=== PATIENT | male | born 1970 | race Caucasian/White ===

== ENCOUNTER 2019-06-20 09:19 | Outpatient (CLI) | payer OTHER, SELFPAY ==
--- NOTE | 2019-06-20 10:15 | NEURO_ITS ---
Patient Number: [id number] Impression: # Complains of pain and numbness of hands. # Bilateral Carpal Tunnel Syndrome, right more than left. # No ulnar neuropathy. # Normal needle/EMG exam. Nerve Conduction Studies Anti Sensory Summary Table Stim Site NR Peak (ms) P-T Amp (?V) Site1 Site2 Delta-P (ms) Dist (cm) Yazan (m/s) Left Median Anti Sensory (2-3nd Digit) Wrist 4.3 33.1 Wrist 2-3nd Digit 4.3 14.0 33 Wrist 4.8 13.6 Wrist 2-3nd Digit 4.3 14.0 33 Right Median Anti Sensory (2-3nd Digit) Wrist 5.9 29.9 Wrist 2-3nd Digit 5.9 14.0 24 Wrist 6.3 7.8 Wrist 2-3nd Digit 5.9 14.0 24 Left Radial Anti Sensory (Base 1st Digit) Wrist 2.0 21.1 Wrist Base 1st Digit 2.0 0.0 Right Radial Anti Sensory (Base 1st Digit) Wrist 2.0 16.0 Wrist Base 1st Digit 2.0 0.0 Left Ulnar Anti Sensory (5th Digit) Wrist 2.5 59.6 Wrist 5th Digit 2.5 14.0 56 Right Ulnar Anti Sensory (5th Digit) Wrist 2.5 49.7 Wrist 5th Digit 2.5 14.0 56 Motor Summary Table Stim Site NR Onset (ms) O-P Amp (mV) Site1 Site2 Delta-0 (ms) Dist (cm) Yazan (m/s) Left Median Motor (Abd Poll Brev) Wrist 4.1 1.2 Elbow Wrist 5.4 30.0 56 Elbow 9.5 0.9 Right Median Motor (Abd Poll Brev) Wrist 5.8 1.4 Elbow Wrist 4.7 28.0 60 Elbow 10.5 1.4 Left Ulnar Motor (Abd Dig Minimi) Wrist 2.5 4.1 A Elbow Wrist 5.2 31.0 60 A Elbow 7.7 3.2 Right Ulnar Motor (Abd Dig Minimi) Wrist 2.3 3.2 A Elbow Wrist 5.2 30.0 58 A Elbow 7.5 2.3 F Wave Studies NR F-Lat (ms) L-R F-Lat (ms) Left Median (Mrkrs) (Abd Poll Brev) 31.28 0.01 Right Median (Mrkrs) (Abd Poll Brev) 31.29 0.01 Left Ulnar (Mrkrs) (Abd Dig Min) 29.53 0.04 Right Ulnar (Mrkrs) (Abd Dig Min) 29.57 0.04 EMG Side Muscle Nerve Root Ins Act Fibs Amp Dur Recrt Comment Right 1stDorInt Ulnar C8-T1 Nml Nml Nml Nml Nml Right Ext Indicis Radial (Post Int) C7-8 Nml Nml Nml Nml Nml Right Ext Digitorum Radial (Post Int) C7-8 Nml Nml Nml Nml Nml Right BrachioRad Radial C5-6 Nml Nml Nml Nml Nml Right PronatorTeres Median C6-7 Nml Nml Nml Nml Nml Right Abd Poll Brev Median C8-T1 Nml Nml Nml Nml Nml Left 1stDorInt Ulnar C8-T1 Nml Nml Nml Nml Nml Left Ext Indicis Radial (Post Int) C7-8 Nml Nml Nml Nml Nml Left Ext Digitorum Radial (Post Int) C7-8 Nml Nml Nml Nml Nml Left BrachioRad Radial C5-6 Nml Nml Nml Nml Nml Left PronatorTeres Median C6-7 Nml Nml Nml Nml Nml Left Abd Poll Brev Median C8-T1 Nml Nml Nml Nml Nml MTDD
== END 2019-06-20 09:20 | disposition home or self-care (01) ==
PROVIDERS: PCP Internal Medicine; Visit Provider Internal Medicine
DX: R20.2 Paresthesia of skin (principal); G56.03 Carpal tunnel syndrome, bilateral upper limbs
CPT/HCPCS: 95886; 95911

== ENCOUNTER 2021-08-10 00:01 | Day surgery (SDC) | payer OTHER, SELFPAY ==
[2021-07-20 13:42] VITALS: BMI 29.9
--- NOTE | 2021-08-09 15:55 | WPDANESEPPF ---
Anes - Initial Pre Proc Eval Procedure: Operation Date: 08/10/21 08:00 Proposed Procedures p Screening Colonoscopy - Nagi Manzo MD Date/Time: 08/09/21 15:55 Surgeon: Nagi Manzo MD Pre Op Diagnosis: neoplasm screening, family hx of colon ca Patient Data Age: 51 Gender: M Height: 1.83 m Weight: 100 kg Allergies Allergy/AdvReac Type Severity Reaction Status Date / Time No Known Allergies Allergy Verified 08/10/21 06:50 Home Medications Medication Instructions Recorded Confirmed Type alprazolam 0.5 mg tablet 0.5 mg PO DAILY 01/29/20 07/20/21 History amlodipine 10 mg-atorvastatin 20 1 tablet PO DAILY 01/29/20 07/20/21 History mg tablet Patient hx anesthesia problems: none Family hx anesthesia problems: none Results Review: All pre-operative results and documents have been reviewed as part of the pre-operative evaluation. [facility] Past Medical History Medical History (Updated 08/09/21 @ 15:55 by Earnest Bell DO) Hyperlipidemia Hypertension Surgical History Surgical History History of surgical removal of ganglion cyst (~2011) Social History Social History Smoking status: Never smoker Alcohol intake: current Drinks per week: 6 Substance use type: does not use Living arrangements: with family Spiritual care concerns: No Anes - Eval Final PreProcedure Day of Procedure 08/09/21 15:55 Patient weight: overweight Heart: regular rate and rhythm Lungs: clear to auscultation Airway: Mallampati scale class II Neurological: alert and oriented Last oral intake: >/= 8 hours ASA classification: II Emergent: no Anesthetic plan: proceed Anesthesia type and monitoring: general GIVS and standard monitoring Results Review: All pre-operative results and documents have been reviewed as part of the pre-operative evaluation. Informed Consent: The patient's anesthetic plan and its attendant risks and benefits were discussed with the patient/family/POA. Questions were solicited and answers provided to the satisfaction of the patient/family/POA.
[2021-08-10 06:51] VITALS: BP 133/84; PULSE 55; RESP 16; TEMP 36.7; O2SAT 99
[2021-08-10] MEDS: LACTATED RINGERS 1,000 ML 150 ML IV CONT (07:32)
--- NOTE | 2021-08-10 07:54 | WPDGICN ---
Assessment and Plan Assessment and plan (1) Family history of colon cancer in father: Code(s): Z80.0 - Family history of malignant neoplasm of digestive organs Status: Acute Assessment and Plan: Patient's father had colon cancer. Plan is for surveillance colonoscopy now and consider follow-up at 5 year intervals in the future. GI Consult Note Consult date/time: 08/10/21 07:54 Reason for consult: Neoplasia screening. HPI: Shay Alcala is a 51 year old male Presents for screening colonoscopy. Patient's current weight appetite bowel movements are normal. He denies abdominal pain. Patient has had no bleeding. Family history is significant his father had colon cancer. Patient presents today for screening colonoscopy. Review of Systems Review of Systems: Review of systems noncontributory. [facility] Past Medical History Medical History (Updated 08/10/21 @ 07:56 by Nagi Manzo MD) Hyperlipidemia Hypertension Surgical History Surgical History History of surgical removal of ganglion cyst (~2011) Social History Social History Smoking status: Never smoker Alcohol intake: current Drinks per week: 6 Substance use type: does not use Living arrangements: with family Spiritual care concerns: No Meds Home Medications and Allergies Home Medications Medication Instructions Recorded Confirmed Type alprazolam 0.5 mg tablet 0.5 mg PO DAILY 01/29/20 07/20/21 History amlodipine 10 mg-atorvastatin 20 1 tablet PO DAILY 01/29/20 07/20/21 History mg tablet Allergies Allergy/AdvReac Type Severity Reaction Status Date / Time No Known Allergies Allergy Verified 08/10/21 06:50 Vital Signs Vital Signs - 24 hr 08/10/21 06:51 Temperature 98.1 F Pulse Rate 55 L Respiratory Rate 16 Blood Pressure 133/84 Pulse Oximetry 99 Oxygen Delivery Room Air Exam Narrative: Physical exam reveals patient to be alert. Vital signs stable. HEENT exam is unremarkable. Patient is anicteric. Lungs are clear to auscultation and percussion. Heart is without murmur or extra sounds. Abdominal exam bowel sounds are present soft nontender with no organomegaly. Digital external rectal exam is normal.
[2021-08-10 08:24] VITALS: BP 109/65; PULSE 70; RESP 21; O2SAT 99
[2021-08-10 08:34] VITALS: BP 121/81; PULSE 62; RESP 18; O2SAT 99
[2021-08-10 08:44] VITALS: BP 129/82; PULSE 52; RESP 16; O2SAT 98
== END 2021-08-10 08:50 | disposition home or self-care (01) ==
PROVIDERS: PCP Internal Medicine; Visit Provider Internal Medicine Gastroenterology
PROC: 0DJD8ZZ Inspection of Lower Intestinal Tract, Via Natural or Artificial Opening Endoscopic (ICD-10-PCS; CPT 45378; principal; 2021-08-10 08:00)
DX: Z12.11 Encounter for screening for malignant neoplasm of colon (principal); D12.8 Benign neoplasm of rectum; K64.8 Other hemorrhoids; Z80.0 Family history of malignant neoplasm of digestive organs; I10 Essential (primary) hypertension; E78.5 Hyperlipidemia, unspecified
CPT/HCPCS: 45385; 88305; J2001; J2704; J7120

== ENCOUNTER 2023-09-14 09:55 | Emergency (ER) | payer OTHER, SELFPAY ==
--- NOTE | ~2023-09-14 | XR_ITS ---
EXAMINATION: XR ribs RT 2V DATE: 09/14/2023 10:23 INDICATION: Right rib pain TECHNIQUE: 3 views of the right ribs were obtained. COMPARISON: None FINDINGS: Incidentally noted are 13 paired ribs. No rib fractures identified. Right lung and visualized portion s of the left lung are clear with no pleural effusion or pneumothorax. Mild lumbar dextrocurvature. IMPRESSION: 1. No rib fracture or acute cardiopulmonary disease. Reviewed, dictated and finalized at location A.
[2023-09-14 10:08] VITALS: BP 147/77; PULSE 72; RESP 18; TEMP 36.8; O2SAT 97
--- NOTE | 2023-09-14 10:09 | ED.GENADULT ---
HPI - General Adult General Chief complaint: Chest Pain Stated complaint: Right Rib Pain/Injury Time Seen by Provider: 09/14/23 10:09 Source: patient, RN notes reviewed and old records reviewed Mode of arrival: ambulatory Limitations: no limitations History of Present Illness HPI narrative: Patient presents with complaints of right rib pain. Present for 4 days. Patient reports that he was choking, somebody did the Heimlich maneuver, this successfully dislodged the foreign object, but now he does have rib pain on the right side. Has been taking naproxen with moderate relief. Pain is worse with deep inspiration, relief with standing. Denies other injury and trauma, voices no other concerns or complaints at this time. Related Data Allergies Allergy/AdvReac Type Severity Reaction Status Date / Time buspirone [From BuSpar] AdvReac Intermediate Headache Verified 09/14/23 10:14 escitalopram [From Lexapro] AdvReac Mild Diarrhea Verified 09/14/23 10:14 Review of Systems Review of Systems: All systems reviewed & are unremarkable except as noted in HPI and below Constitutional: Constitutional: Reports no additional constitutional complaints ENT: Reports system reviewed and no additional complaints, except as documented Cardiovascular: Cardiovascular: Reports no additional cardiovascular complaints Respiratory: Respiratory: Reports no additional respiratory complaints, Reports pain on inspiration, Reports pain with cough and Denies dyspnea Gastrointestinal: Gastrointestinal: Reports no additional gastrointestinal complaints PMFSH Past Medical History Medical History GERD (gastroesophageal reflux disease) Hyperlipidemia Hypertension Weight loss counseling, encounter for Surgical History Surgical History History of surgical removal of ganglion cyst (~2011) Social History Social History Smoking status: Never smoker Second hand tobacco smoke exposure: No Alcohol intake: current Drinks per week: 6 Substance use: never Substance use type: does not use Lack of Transportation: No Lack of Food: Never True Current Housing: I Have Housing Concerned About Future Housing: No Difficulty Paying Gas/Electric Bills: No Difficulty Paying for Meds: No Currently Unemployed: No Education: Bachelor's Degree Difficulty w/ Childcare or Family Care: No Living arrangements: with family Occupation/Education: occupation Additional occupation/education comments: Teacher at [employer] Gender identity (if verbalized by the patient): Male Spiritual care concerns: No Comments At the time of my signature, I reviewed and agree with the nursing past medical, surgical, social, and family history. There is no relevant family history pertinent to the patient complaint. Exam Const: General: cooperative, no acute distress, alert and awake Orientation/consciousness: oriented to person, oriented to place and oriented to time HENMT: Head: normal to inspection Chest: Chest palpation & inspection: tenderness rib (right lower) Resp: Effort & Inspection: normal respiratory effort and able to speak in complete sentences Auscultation: clear to auscultation bilaterally, no crackles, no rales, no rhonchi and no wheezes Cardio: Palpation: normal PMI Rate: regular rate Rhythm: regular rhythm Heart sounds: S1 normal heart sound present and S2 normal heart sound present Neuro: General: oriented to person, oriented to place and oriented to time Cranial nerves: Yes CN's II-XII intact bilaterally Psych: Appearance: grossly normal Thought process: Normal thought process present Insight: Good insight present (Psych) Judgement: Good judgement present (Psych) Course Course Level of Care: Express Care Visit Vital Signs Vital signs: Vital Signs Te
== END 2023-09-14 11:02 | disposition home or self-care (01) ==
PROVIDERS: Emergency Provider Nurse Practitioner Family; PCP Family Medicine
DX: R07.81 Pleurodynia (principal); K21.9 Gastro-esophageal reflux disease without esophagitis; E78.5 Hyperlipidemia, unspecified; I10 Essential (primary) hypertension
CPT/HCPCS: 71100; 99213; G0463